=== PATIENT | male | born 1970 | race Caucasian/White ===

== ENCOUNTER 2018-01-10 23:02 | Inpatient (IN) | payer OTHER, SELFPAY ==
[~2018-01-10] VITALS: Ht 190.5 cm; Wt 97.5 kg
[~2018-01-10 23:02] MED LIST: ACETAMINOPHEN325 M1 PO; ALLERGY MULTI-1 EACH PO; ALPRAZOLAM 0.50.5 MG PO; ALPRAZOLAM XR1 MG PO; ATORVASTATIN CA20 MG PO; B COMPLEX-VITA1 EACH; CLOTRIMAZOLE 1%15 G1 TOP; COMBIGAN EYE DR10 ML; COMBIGAN EYE DR10 ML OPHTHALMIC; COPAXONE20 M1; DAYPRO600 MG; FISH OIL 1,2001 EAC4 PO; FISHOIL PO; FLOMAX0.4 MG PO; GABAPENTIN; GABAPENTIN600 M1 PO; GILENYA PO; GILENYA0.5 MG PO; IBUPROFEN 800800 M1 PO; IMURAN 50MG TAB50 M1; IRON PO; IRON159 MG PO; LAMISIL250 MG; LAMISIL250 MG PO; MEDROLDOSEPACK; METADATE CD10 MG PO; MILK THISTLE1 GM PO; MILK THISTLE500 MG; MILK THISTLE500 MG PO; MOBIC15 MG PO; MUCUS RELIEF600 MG; NEURONTIN 300300 M1 PO; NEURONTIN 300M300 M2 PO; NEURONTIN600 MG PO; NORTRIPTYLINE H25 M3 PO; NUVIGIL PO; OMEPRAZOLE 20 M20 M1 PO; OXYCODONE HCL 55 MG PO; OXYCODONE HCL10 MG PO; OXYCODONE HCL5 M1 PO; OXYCODONE-ACET1 EAC4; PREDNISONE 10 M10 M1; PREDNISONE 10 M10 MG PO; PRILOSEC 20 MG20 MG PO; PROTONIX40 M2 PO; PROVIGIL 200 M200 M1 PO; REMERON15 MG PO; ROBAXIN 750 MG750 M1 PO; SOLU MEDRO IV; SYNTHROID25 MCG PO; TAMSULOSIN HCL0.4 M1; TAMSULOSIN HCL0.4 M1 PO; TECFIDERA240 MG PO; TERBINAFINE HC250 MG PO; TRANXENE T-TAB7.5 MG PO; VICODIN 5-5001 EACH; VITAMIN B-125000 MCG PO; VITAMIN B12 PO; VITAMIN D 5050000 I1; VITAMIN D 5050000 I1 PO; VITAMIN D1000 UNI1; VITAMIN D400 UNI1; WELLBUTRIN SR200 MG; WELLBUTRIN SR200 MG PO; [UNRECOGNIZED DRUG - CODE]; [UNRECOGNIZED DRUG - OTHER] IV; [UNRECOGNIZED DRUG - REMARK]; [UNRECOGNIZED DRUG - REMARK]; [UNRECOGNIZED DRUG - REMARK] PO
[2018-01-10 23:11] VITALS: BP 109/73
[2018-01-10] MEDS ORDERED: CYMBALTA60 MG PO (23:24)
[2018-01-10] MEDS ORDERED: PROZAC20 MG (23:25)
[2018-01-10] MEDS ORDERED: OCREVUS300 MG/10 INJECTION (23:26)
[2018-01-11 00:41] LABS: HEMATOCRIT 41.2 % (42.0-52.0); HEMOGLOBIN 14.3 gm/dL (14.0-18.0); MCH 29.8 pg (26.0-34.0); MCHC 34.8 g/dL (28.0-37.0); MCV 85.8 fL (80.0-100.0); NUCLEATED RBCS 0 /100WBC; PLATELET COUNT* 226 thou/uL (150-400); RBC 4.81 mil/uL (4.50-6.00); RDW-CV 13.5 % (10.5-14.5); WBC 10.6 thou/uL (4.0-11.0)
[2018-01-11 00:44] LABS: CALCIUM 7.9 mg/dL (8.5-10.1); CREATININE 1.1 mg/dL (0.6-1.3); POTASSIUM 3.5 mmol/L (3.5-5.1)
[2018-01-11 00:49] LABS: ALBUMIN 3.3 g/dL (3.4-5.0); TOTAL BILIRUBIN 0.5 mg/dL (<0.1-1.0); TOTAL PROTEIN 6.4 g/dL (6.4-8.2)
[2018-01-11 01:50] LABS: ABSOLUTE EOSINOPHILS 0.1 thou/uL (0.0-0.7); ABSOLUTE LYMPHOCYTES 0.4 thou/uL (0.8-5.3); ABSOLUTE MONOCYTES 0.7 thou/uL (0.0-1.2); ABSOLUTE NEUTROPHILS 9.3 thou/uL (1.6-8.1); PLATELET ESTIMATE ADEQUATE
[2018-01-11 01:51] LABS: LARGE PLATELETS RARE
[2018-01-11 02:04] LABS: ESR (SEDRATE) 10 mm/hr (0-15)
[2018-01-11 02:34] VITALS: BP 118/64
[2018-01-11 02:40] VITALS: BP 109/68
--- NOTE | 2018-01-11 05:41 | NUR ---
PATIENT ARRIVED ON FLOOR ABOUT 0235 BROUGHT BY CART FROM ER. PATIENT ADMISSION HISTORY AND ASSESSMENT WAS COMPLETED CHARTED. IV BOLUS OF SOLUMEDROL WAS GIVEN ORDERED. PATIENT IS UP WITH ASSIST. PATIENT INSTRUCTED TO CALL FOR HELP WHEN NEEDED. WILL CONTINUE TO MONITOR.
[2018-01-11 07:30] VITALS: BP 110/61
--- NOTE | 2018-01-11 15:59 | NUR ---
PATIENT UP WITH SBA, UTILIZES WALKER. PT WORKED WITH PATIENT TODAY, AMBULATED IN HALLS. IVF STARTED THIS SHIFT PER ORDERS. NEURO CONS AND SAW PATIENT THIS AFTERNOON, ORDERS FOR MRI AND MRA. MESSAGE LEFT WITH OFFICE REGARDING RESULTS, AWAITING CALL BACK FROM DR. KEN. GOOD APPETITE.
[2018-01-11 16:20] VITALS: BP 106/68
[2018-01-11 23:57] VITALS: BP 94/47
[2018-01-12 03:07] LABS: GLYCOHEMOGLOBIN (HGB A1C) 5.5 % (4.8-5.6)
[2018-01-12 03:53] LABS: HEMATOCRIT 40.7 % (42.0-52.0); HEMOGLOBIN 13.8 gm/dL (14.0-18.0); MCH 29.1 pg (26.0-34.0); MCV 85.6 fL (80.0-100.0); MPV 9.3 fl. (7.2-11.1); RBC 4.75 mil/uL (4.50-6.00); RDW-CV 13.8 % (10.5-14.5); WBC 17.3 thou/uL (4.0-11.0)
[2018-01-12 04:01] LABS: ALBUMIN 3.1 g/dL (3.4-5.0); CALCIUM 8.7 mg/dL (8.5-10.1); CREATININE 0.9 mg/dL (0.6-1.3); PHOSPHORUS* 2.6 mg/dL (2.5-4.9); POTASSIUM 4.2 mmol/L (3.5-5.1)
--- NOTE | 2018-01-12 04:54 | NUR ---
ASSESSMENT COMPLETE. PT DENIES NEED FOR PAIN MEDS DURING THE NIGHT. PT SLEPT MOST OF THE NIGHT WITHOUT ANY CONCERNS. PT AMBULATED HALLS AT BEGINING OF SHIFT WITH WALKER FROM HOME, STANDBY ASSIST WITH STEADY GAIT. PT REFUSING IV FLUIDS DURING THE NIGHT. PT IS ON ROOM AIR WITH [place] SATS. PT IS FALL RISK, BED ALARM ON. SEE ASSESSMENT AND VITALS FOR OTHER DETAILS. CALL LIGHT WITHIN REACH, WILL CONTINUE PLAN OF CARE
[2018-01-12 09:15] VITALS: BP 111/72
--- NOTE | 2018-01-12 11:49 | NUR ---
CM SPOKE TO THE PATIENT TO DISCUSS HOME SITUATION, DISCHARGE PLANNING, AND TO INFORM OF THE ROLE OF CM. PATIENT ALERT AND ORIENTED. PATIENT ABLE TO PERFORM TYPE COPY EXAMINER AND DRIVES. PATIENT USES A WALKER FOR MOBILITY, HIS HOME IS EQUIPPED WITH A RAMP, AND USES A BIPAP. PATIENT HAS NO HX OF OR SNF. DR BRUCE INFORMS THAT SHE IS RECOMMENDING INPATIENT REHAB AT D/C. CM SPOKE TO THE PATIENT AND HE INFORMS THAT HE IS 'OPEN TO IT, BUT MUST DISCUSS IT WITH MY '. CM WILL REMAIN AVIALABLE TO ASSIST AND FOLLOW NEEDED.
--- NOTE | 2018-01-12 13:52 | NUR ---
RECEIVED CONSULT FOR POSSIBLE REHAB ADMISSION. CONSULT HAS BEEN ACKNOWLEDGED BY MANAGER CREDIT COLLECTIONS AND DR. PARMAR. PATIENT ADMITTED WITH MS EXACERBATION. HE IS PARTICIPATING WITH THERAPIES AND DOING WELL. HE INDEPENDENT WITH MOBILITY AND TRANSFERS AND SUP WITH GAIT FOR 580' WITH PT AND HE MOD I/SUP WITH OT, ST EVALUATION IS PENDING. PATIENT DOES NOT MEET CRITERIA FOR ACUTE REHAB BUT MAY BENEFIT FROM CONTINUED PT/OT/ST FOR STRENGTHENING AND MEMORY DEFICITS WITH HH VS. OP THERAPIES. NOTIFIED ALLEN MONTIEL THAT PATIENT DID NOT MEET CRITERIA AND RECOMENDATIONS. THANK YOU FOR THIS REFERRAL.
[2018-01-12 16:00] VITALS: BP 109/56
--- NOTE | 2018-01-12 16:07 | NUR ---
PATIENT UP WITH SBA; WALKER. PT AND ST THIS SHIFT. REHAB CONS. NO COMPLAINTS OF PAIN. IV RESTARTED TO RIGHT FOREARM, IVF AND SCHED STEROIDS INFUSING.
[2018-01-13 00:39] VITALS: BP 132/76
--- NOTE | 2018-01-13 06:25 | NUR ---
PATIENT SLEPT MOST OF THE NIGHT. PATIENT WAS GIVEN PAIN MEDICINE ONCE THIS SHIFT. PATIENT WAS UP WALKING THE HALLS LAST NIGHT. WILL CONTINUE TO MONITOR.
[2018-01-13 09:30] VITALS: BP 125/68
[2018-01-13 10:44] VITALS: BP 125/68
--- NOTE | 2018-01-13 10:53 | NUR ---
CM SPOKE TO THE PATIENT TO DISCUSS ANY QUESTIONS OR CONCERNS THAT HE MAY HAVE AND TO DISCUSS DISCHARGE PLANNING NEEDS. PATIENT HAS NO QUESTIONS OR CONCERNS AT THIS TIME AND INFORMS THAT CM NEEDS TO CONTACT HIS TO DISCUSS HH CHOICE. CM CONTACTED PATIENT'S SPOUSE JESSICA AND SHE INFORMS THAT SHE WOULD LIKE HH SETUP WITH [facility]. CM CONTACTED [facility] TO INFORM OF THE HH REFERRAL AND FAXED PATIENT'S CLINICAL INFO. CM WILL REMAIN AVAILABLE TO ASSIST AND FOLLOW NEEDED.
--- NOTE | 2018-01-13 14:53 | NUR ---
ASSUMED CARE OF PATIENT AFTER MORNING REPORT AT APPROX 0720. ALERT AND ORIENTED X4. ASSESSMENT COMPLETED AND CHARTED. VSS ON ROOM AIR. PATIENT HAS HAD NO COMPLAINTS OF PAIN, NAUSEA, OR SOA. FLUIDS INFUSED ORDERED. PATIENT WALKED WITH THERAPY AND DID VERY WELL. PATIENT CLEARED TO DISCHARGE AND RECEIVED A CAB VOUCHER. PATIENT DISCHARGED AND PICKED UP VIA CAB AT 1450. ALL PERSONAL BELONGINGS AND DISCHARGE INFORMATION SENT WITH PATIENT UPON DISCHARGE.
--- NOTE | 2018-01-20 12:34 | CON ---
[address] [address] CONSULTATION Name: RACHANAARLET BEASLEY Room: [address] IN M.R.#: [id number] Admission: 01/11/18 Attend Phys: Nicole Negron Discharge: 01/13/18 Date of : 66 Report #: [id number] THIS REPORT FOR: //name// CC: Jose J Muir Emelina Velázqueze DATE OF SERVICE: 01/11/2018 HISTORY OF PRESENT ILLNESS: This is a 47-year-old male patient who was admitted because he said he was sore all over the body. He indicated that he mowed the lawn and just overdid it and then became very sore all over the body. He came into the hospital and he received some hydration and he is feeling back to normal this morning. He indicates his pain was 15/10 when this happened, but now he does not have any pain. He carries a diagnosis of multiple sclerosis. He follows up with Dr. Abena Blevins at [facility]. He said he gets some treatment every 6 months which is intravenous. He cannot tell me if the diagnosis is optic neuritis or MS. He does not have vision on the right side. He does have some history of depression for which he takes the medication. He does take supplemental vitamin one time, but it is not clear if he is taking it now or not. This was his relevant 14-point review of systems. He has no new cardiac, respiratory, GI, , constitutional, dermatological, hematological, psychiatric, throat, allergic symptoms. He does have ataxia, but that has resolved and I am not sure if it was ataxia or not. PAST MEDICAL HISTORY: Positive for diagnosis of demyelinating disorder. FAMILY HISTORY: Negative for early age stroke. SOCIAL HISTORY: The patient used to work here. He does not smoke or drink any alcohol. PHYSICAL EXAMINATION: NEUROLOGIC: Indicates he is alert, responsive, able to follow simple and complex command. His speech, concentration, fund of knowledge and memory are at his baseline. His cranial nerve examination 2-12 indicates no vision in the right eye. I could not have a good look at the patient's fundus. He has symmetrical strength, sensation, reflexes and tone in all 4 extremities. NECK: There is no meningeal sign. There is no thyroid mass. CARDIAC: Unremarkable. CHEST: No respiratory difficulty or rhonchi. GENERAL: He is a very well developed individual who does not have any dysmorphic features of eyes, ears and face. EXTREMITIES: His pulses are palpable, but he has no edema, cyanosis, [place] [address] CONSULTATION Name: ARLET REICH Room: [address] M.R.#: [id number] Admission: 01/11/18 Attend Phys: Nicole Negron Discharge: 01/13/18 Date of : 66 Report #: [id number] LABORATORY DATA: His white count is 10.6. His sodium is normal, but his calcium is 7.9 which is significantly decreased. His albumin is slightly decreased at 3.3. He did have a CPK when he came in and that was okay. He did have a CT scan of the head when he came in and that was okay too. IMPRESSION: It is unlikely that the patient's present symptoms were related to his demyelinating disorder, but symptoms are pretty unusual. He said he was due for an MRI, so I will go ahead and do an MRI. I am not sure how many times he got contrast, so I will just do a noncontrast MRI of the brain. Since he has some suggestion of some ataxia, I will also go ahead and do an MRA to look at the posterior fossa. I will check his vitamin D because of his history of multiple sclerosis and I will also repeat his TSH and vitamin B12. If he continues to do well, I do not think I will do any further workup here, but will ask him to see Dr. Blevins for further evaluation and management. <ELECTRONICALLY SIGNED> By: Jc Caballero MD 01/20/18 1234 [id number] [id number] Caballero MD /nt
== END 2018-01-13 14:50 | disposition home health service (06) | DRG 59 ==
LOC: M.ERS 23:02 → M.TBA-ER 01-11 00:53 → M.ORTHSURG 01-11 00:53
PROVIDERS: Internal Medicine; Physician Assistant; ADMIT Internal Medicine
DX: G35 Multiple sclerosis (principal); R65.10 Systemic inflammatory response syndrome (SIRS) of non-infectious origin without acute organ dysfunction; F32.9 Major depressive disorder, single episode, unspecified; Z88.8 Allergy status to other drugs, medicaments and biological substances; Z91.040 Latex allergy status; Z79.899 Other long term (current) drug therapy

== ENCOUNTER → 2018-04-25 | Emergency (ER) | payer OTHER ==
[~2018-04-25] VITALS: Ht 190.5 cm; Wt 99.8 kg
[~2018-04-25] MED LIST changes: +CYMBALTA60 MG PO; +OCREVUS300 MG/10 INJECTION; +PROZAC20 MG; +VIAGRA100 MG; +XALATAN2.5 ML
[2018-04-25 22:59] VITALS: BP 128/72
--- NOTE | 2018-04-26 16:23 | EKG ---
[place] [address] ELECTROCARDIOGRAM REPORT Name: ARLET REICH Room: [facility]#: [id number] Admission: 04/25/18 Attend Phys: Discharge: Date of : 66 Report #: [id number] THIS REPORT FOR: //name// [facility] ED Test Date: 2018-04-25 Test Time: 23:31:23 Pat Name: ARLET REICH Department: Room: Gender: Early Childhood Teacher Assistant: DANIELLE : 1970 Requested By: Noah Schmidt Order Number: [id number] MD: Kevin Batista Measurements Intervals [place] Rate: 65 P: 15 IA: 166 QRS: 15 QRSD: 108 T: 8 QT: 412 QTc: 429 Interpretive Statements Sinus rhythm ST elev, probable normal early repol pattern Compared to ECG 08/30/2014 17:51:11 ST (T wave) deviation now present Electronically Signed On 04-26-2018 16:23:48 CELLULAR EQUIPMENT INSTALLER by Kevin Batista [email or web address] <ELECTRONICALLY SIGNED> By: Kevin Batista MD, [facility] 04/26/18 1623 2330 30 Kevin Batista MD, FACC /EPI
== END ==
LOC: M.ERS 22:56
DX: Z71.1 Person with feared health complaint in whom no diagnosis is made (principal); F32.9 Major depressive disorder, single episode, unspecified; G89.29 Other chronic pain; G47.30 Sleep apnea, unspecified; Z91.040 Latex allergy status; Z88.8 Allergy status to other drugs, medicaments and biological substances

== ENCOUNTER → 2019-03-27 | Outpatient (CLI) | payer OTHER | LOC: M.MRI 11:19 | DX: G35 Multiple sclerosis (principal); J34.1 Cyst and mucocele of nose and nasal sinus; G93.89 Other specified disorders of brain; Z91.040 Latex allergy status; Z88.8 Allergy status to other drugs, medicaments and biological substances ==